=== PATIENT | female | born 1995 | race Caucasian/White ===

== ENCOUNTER 2020-05-30 09:19 | Emergency (ER) | payer SELFPAY ==
[~2020-05-30] VITALS: Ht 160 cm; Wt 49.9 kg
[2020-05-30 09:39] VITALS: BP 117/74
--- NOTE | 2020-05-30 09:42 | NUR ---
ED Nurse Note: Patient walked in to ED c/o pain and swelling to left 2nd finger x5 days after clipping her cuticle. Pt tested positive for Covid last 05/24/20. Pt also c/o mild cough. NAD noted, vss, calm and cooperative. 4/10 pain on left finger.
--- NOTE | 2020-05-30 09:53 | Emergency Room Report ---
History of Present Illness General Chief Complaint: Pain Source: Patient Present Illness HPI Patient is a 25-year-old female presents for increased swelling to her index finger for the past 4 days. Gradual onset of symptoms. Recent diagnosis of coronavirus infection. Denies any fever. Had increased discomfort to the area after biting her nails. Has been soaking warm Fluids. 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 COVID-19 Screening: Positive COVID-19 COVID-19 Testing Source: urgent care Patient History Past Medical History: see triage record Last Menstrual Period: on control Reviewed Nursing Documentation: PMH: Agreed; PSxH: Agreed Nursing Documentation-PMH Hx Asthma: Yes Review of Systems All Other Systems: negative except mentioned in HPI Physical Exam Vital Signs Date Time Temp Pulse Resp B/P (MAP) Pulse Ox O2 Delivery O2 Flow Rate FiO2 05/30/20 09:32 98.6 101 19 117/74 (88) 98 Room Air General Appearance: well appearing, no apparent distress, alert, GCS 15 Head: normocephalic, atraumatic ENT: hearing grossly normal, normal voice Neck: full range of motion, supple Respiratory: lungs clear, normal breath sounds, no respiratory distress, speaking full sentences Cardiovascular #1: normal inspection Musculoskeletal: normal inspection, no calf tenderness Neurologic: alert, motor strength/tone normal, chair mechanic III-XII nml as tested, oriented, oriented x3, normal gait Psychiatric: mood/affect normal Skin: other - Erythema and discoloration to the nailbed of the index finger consistent with a paronychial infection. Medical Decision Making Diagnostic Impression: Primary Impression: Paronychia Additional Impression: Coronavirus infection ER Course Patient presented for finger pain and swelling. Differential diagnosis include was not limited to paronychia infection, coronavirus infection to the finger, cellulitis among others. Patient has an overall benign exam does not appear to require any laboratory testing at this time. Patient was consented for incision and drainage advised risk benefits and alternatives of procedure. Indicates understanding wishes to proceed. Patient's finger was anesthetized with 25% Mar maria luisa after prep with Betadine. Patient initially wanted to leave AGAINST MEDICAL ADVICE however she was eventually amenable to finishing procedure. Patient's finger had 0.5 cm incision performed with drainage of moderate amount of pus. Patient tolerated this well. She was subsequently discharged home with prescription for Keflex. She was advised return if worse. This medical record is generated with [employer] leaf blender software. There may be some leaf blender discrepancies related to use of this software Last Vital Signs Date Time Temp Pulse Resp B/P (MAP) Pulse Ox O2 Delivery O2 Flow Rate FiO2 05/30/20 09:39 98.6 19 117/74 98 Room Air 05/30/20 09:32 101 Status: improved Disposition: HOME, SELF-CARE Condition: Stable Scripts Cephalexin* (KEFLEX*) 500 Mg Capsule 500 MG ORAL EVERY 6 HOURS, #28 CAP Prov: Devin Miranda MD 05/30/20 Devin Miranda MD May 30, 2020 09:53
[2020-05-30] MEDS ORDERED: Lidocaine HCl 2% Jelly 6ml Tube TOPIC ONE (10:00)
[2020-05-30] MEDS ORDERED: Bacitracin Oint UD TOPIC ONE (10:00)
[2020-05-30] MEDS ORDERED: Bupivacaine 0.5% Inj 30 ml vial INJ ONE (10:00)
--- NOTE | 2020-05-30 10:42 | NUR ---
ED Nurse Note: dr. puga at bedside doing i&d procedure. consents signed.
[2020-05-30] MEDS ORDERED: CEPHALEXIN500 MG ORAL (11:15)
[2020-05-30 11:18] VITALS: BP 117/74
--- NOTE | 2020-05-30 11:24 | NUR ---
ED Nurse Note: Patient cleared by health care Provider for discharge. DC instructions/prescription was given and explained to pt and verbalized understanding of teachings. All medical deviecs such as ID band removed. Pt is AAO x4, ambulatory and left with all personal belongings. applied bacitracin ointment on right 2nd finger and wrapped with dry dressing per md order.
== END 2020-05-30 11:26 | disposition left against medical advice (07) ==
LOC: EMR 09:57
DX: L03.011 Cellulitis of right finger (principal); U07.1 COVID-19; J45.909 Unspecified asthma, uncomplicated
CPT/HCPCS: 26010; 99282; J3490